=== PATIENT | male | born 1985 | race Hispanic/Latino ===

== ENCOUNTER 2017-06-09 17:32 | Emergency (ER) | payer OTHER ==
[2017-06-09 17:44] VITALS: RESP 16; TEMP 98.2
[2017-06-09 18:11] LABS: BASO # 0.1 K/uL (0.0-0.2); BASO % 0.5 % (0.0-2.0); EOS % 10.5 % (0.0-4.0); HEMOGLOBIN 15.7 g/dL (12.0-18.0); LYMPH # 2.5 K/uL (1.0-4.3); LYMPH % 27.1 % (20.0-40.0); MEAN CELL VOLUME 89.8 fl (80.0-94.0); MEAN CORPUSCULAR HEMOGLOBIN 30.8 pg (27.0-31.0); MEAN CORPUSCULAR HGB CONC 34.3 g/dL (33.0-37.0); MEAN PLATELET VOLUME 7.3 fl (7.2-11.7); MONO # 0.8 K/uL (0.0-0.8); MONO % 8.4 % (0.0-10.0); NEUT % 53.5 % (50.0-75.0); NRBC % 0.1 % (0.0-0.0); RBC 5.09 Mil/uL (4.40-5.90); WHITE BLOOD COUNT 9.3 K/uL (4.8-10.8)
[2017-06-09 18:20] LABS: ALB/GLOB RATIO 1.3 (1.0-2.1); ALBUMIN 4.5 g/dL (3.5-5.0); ALT/SGPT 43 U/L (21-72); AST/SGOT 35 U/L (17-59); BLOOD UREA NITROGEN 15 mg/dl (9-20); CALCIUM 9.7 mg/dL (8.4-10.2); GFR AFRICAN-AMERICAN > 60; GFR NON-AFRICAN AMERICAN > 60
--- NOTE | 2017-06-09 18:26 | ED PDOC ---
HPI: Skin/Bite Injury Time Seen by Provider: 06/09/17 17:44 Chief Complaint (Nursing): Abnormal Skin Integrity Chief Complaint (Provider): Rash on right ankle History Per: Patient History/Exam Limitations: no limitations Onset/Duration Of Symptoms: Days Current Symptoms Are (Timing): Still Present Additional Complaint(s): Patient is a 32 year old male presenting to the emergency department for a red, painful rash on his right ankle x1 week that developed after contact with poison alka while golfing. Since onset, patient maintains that he would run and wear dress socks but noticed that the rash became worse on Saturday06/07/17. Over the counter medication did not provide any relief of symptoms. Denies fever. PCP: none provided. Past Medical History Reviewed: Historical Data, Nursing Documentation, Vital Signs Vital Signs: Last Vital Signs Temp 98.2 F 06/09/17 17:41 Pulse 69 06/09/17 17:41 Resp 16 06/09/17 17:41 BP 146/75 06/09/17 17:41 Pulse Ox 98 06/09/17 19:48 - Medical History PMH: No Chronic Diseases - Surgical History Surgical History: No Surg Hx - Family History Family History: States: Unknown Family Hx - Home Medications Home Medications: Ambulatory Orders Medication Instructions Recorded Clindamycin [Cleocin] 300 mg PO Q6 #28 cap 06/09/17 Desoximetasone 0.05% [Topicort LP 1 ea EXT DAILY #1 tube 06/09/17 0.05%] Methylprednisolone [Medrol Dose 4 mg PO DAILY #21 mg 06/09/17 Pack (21 tabs)] - Allergies Allergies/Adverse Reactions: Allergies Allergy/AdvReac Type Severity Reaction Status Date / Time cefaclor [From Pending Sale To [facility]] Allergy RASH Verified 06/09/17 17:53 Review of Systems ROS Statement: Except As Marked, All Systems Reviewed And Found Negative Constitutional: Negative for: Fever Skin: Positive for: Rash (Painful and red on the right ankle) Physical Exam - Reviewed Nursing Documentation Reviewed: Yes Vital Signs Reviewed: Yes - Physical Exam Appears: Positive for: Well, Non-toxic, No Acute Distress Head Exam: Positive for: ATRAUMATIC, NORMAL INSPECTION, NORMOCEPHALIC Skin: Positive for: Normal Color, Warm, Dry Pulses-Dorsalis Pedis (R): 2+ Extremity: Positive for: Normal ROM, Capillary Refill (is less than 2 seconds on right foot), Other ( Multiple vesciles with crusting and surrounding erythema on medial and posterior surface of right ankle.) Neurologic/Psych: Positive for: Alert, Oriented - Laboratory Results Result Diagrams: 06/09/17 18:00 06/09/17 18:00 - ECG O2 Sat by Pulse Oximetry: 98 (RA) Pulse Ox Interpretation: Normal - Progress ED Course And Treament: Pt. evaluated by [facility] resident in ED who spoke with Dr. Mott and arranged f/u care. As per Dr. Mott pt. is to be prescribed medrol dose pack , topicort, and clindamycin. Clindamycin 600mg IV given. Pt. instructed to call Dr. Mott's office tomorrow to make an appointment on Saturday. Medical Decision Making Medical Decision Making: Time: 18:00 Initial Impression: Red and painful rash on right ankle Initial Plan: * Labs * Blood culture * IV Insertion * Reevaluation 18:55 Patient evaluated by interventional nurse. 19:18 Discussed case with interventional nurse. 19:23 Upon provider reevaluation patient is medically stable, and requires no further treatment in the ED at this time. Patient will be discharged with Rx Cleocin 300 mg, Topicort 1 tube, Medrol dose pack 4 mg. Counseling was provided and all questions were answered regarding diagnosis and need for follow up with Dr. Boy Zamora. There is agreement to discharge plan. Return if symptoms persist or worsen. Clinical Impression: Cellulitis Scribe Attestation: Documented by Naomi Mayfield, acting as a scribe for Pierce Mark PA-C. Provider Scribe Attestation: All medical record entries made by the Scribe were at my direction and personally dictated by me. I have reviewed the chart and agree that the record accurately reflects my personal performance of the history, physical exam, medical decision making, and the department course for this patient. I have also personally directed, reviewed, and agree with the discharge instructions and disposition. Disposition - Clinical Impression Clinical Impression: Cellulitis - Patient ED Disposition Is Patient to be Admitted: No Doctor Will See Patient In The: Office Counseled Patient/Family Regarding: Diagnosis, Need For Followup, Rx Given - Disposition Referrals: Boy Zamora DPM [Staff Provider] - Disposition: Routine/Home Disposition Time: : Condition: STABLE Additional Instructions: CALL DR. MOTT'S OFFICE ON SATURDAY TO MAKE APPOINTMENT FOR SATURDAY WITHOUT FAIL RETURN TO ED IMMEDIATELY IF SYMPTOMS WORSEN OR IF TEMPERATURE OF 100.4 OR ABOVE DEVELOPS Prescriptions: Clindamycin [Cleocin] 300 mg PO Q6 #28 cap Desoximetasone 0.05% [Topicort LP 0.05%] 1 ea EXT DAILY #1 tube Methylprednisolone [Medrol Dose Pack (21 tabs)] 4 mg PO DAILY #21 mg Instructions: Cellulitis (ED), Poison Alka (ED) Print Language: CZECH
[2017-06-09] MEDS ORDERED: Clindamycin 300 MG in Sodium Chloride 0.9% 50 ML IVPB STA (19:18)
[2017-06-09] MEDS ORDERED: Clindamycin 600 MG in Sodium Chloride 0.9% 100 ML IVPB STA (19:40)
[2017-06-09 20:21] VITALS: BP 122/85; PULSE 88; O2SAT 100
--- NOTE | 2017-06-10 23:46 | CP.PCM.CON ---
History of Present Illness - History of Present Illness History of Present Illness: 32 year old male patient with unremarkable PMHx seen at bedside in holding for a poison rosalba infection to b/l ankles. Patient states that he developed a poison rosalba reaction when golfing last week. Patient sates that he used Calamine lotion and took benadryl to alleviate the itching sensation. Patient wears high socks for work and did not notice the severity of the rash until he attempted to go for a run today and saw that the inside of his right leg was weeping and the inside ankle rash site started to crust over and drain. Patient denies N/V/F/D/C /SOB. No other pedal complaints at this time. PMH: unremarkable PSH: none FH: noncontributory SH: ETOH All: cefaclor Meds: none Review of Systems - Review of Systems All systems: reviewed and no additional remarkable complaints except (as per HPI ) Past Patient History - Infectious Disease Hx of Infectious Diseases: None - Past Social History Smoking Status: Never Smoked - PSYCHIATRIC Hx Substance Use: No Meds Home Medications: Home Medication List Medication Instructions Recorded Confirmed Type Clindamycin [Cleocin] 300 mg PO Q6 #28 cap 06/09/17 Rx Desoximetasone 0.05% [Topicort LP 1 ea EXT DAILY #1 tube 06/09/17 Rx 0.05%] Methylprednisolone [Medrol Dose 4 mg PO DAILY #21 mg 06/09/17 Rx Pack (21 tabs)] Allergies/Adverse Reactions: Allergies Allergy/AdvReac Type Severity Reaction Status Date / Time cefaclor [From [facility]] Allergy RASH Verified 06/09/17 17:53 Physical Exam - Constitutional Appears: Well, Non-toxic, No Acute Distress - Extremities Exam Additional comments: Vasc: DP and PT pulses palpable 2/4 b/l. CFT <3 seconds to all digits x10. TG warm to warm. No increase in warmth to ankle circumfirentially b/l. No edema noted. Neuro: Gross sensation intact. Derm: Exhanthem noted circumfirentially around ankle joint b/l, with fluid- filled blisters noted to medial right ankle. Brown-colored crusts overlying parts of blisters/bullae weeping with serous drainage. Ortho: Tenderness to palpation weeping blisters. - Neurological Exam Neurological exam: Alert, Oriented x3 - Psychiatric Exam Psychiatric exam: Normal Affect, Normal Mood Results - Vital Signs Recent Vital Signs: Last Vital Signs Temp 98.2 F 06/09/17 17:41 Pulse 88 06/09/17 20:20 Resp 16 06/09/17 20:20 BP 122/85 06/09/17 20:20 Pulse Ox 100 06/09/17 20:20 - Labs Result Diagrams: 06/09/17 18:00 06/09/17 18:00 Assessment & Plan - Assessment and Plan (Free Text) Assessment: 32 year old male with no significant PMHx with contact dermatitis secondary to poison rosalba Plan: Patient seen and evaluated at bedside in ED holding Discussed with attending, Dr. Mott Chart, labs, vitals reviewed: afebrile; WBC WNL @ 9.3 Recommend Clindamycin PO Recommend Topicort 0.5% corticosteroid Recommend Medrol Dosepak Patient advised to follow up in Dr. Mott's office in 1 week to evaluate severity of dermatitis. Stable from podiatry standpoint. Thank you for this consult, please reconsult podiatry again as needed. - Date & Time Date: 06/09/17 Time: 18:00
== END 2017-06-09 20:20 | disposition home or self-care (01) ==
LOC: H.ER 17:32
DX: L23.7 Allergic contact dermatitis due to plants, except food (principal)